=== PATIENT | female | born 1995 | race Two or more races ===

== ENCOUNTER 2023-09-08 21:36 | Emergency (ER) | payer MEDICAID, OTHER ==
[~2023-09-08] VITALS: Ht 157.5 cm; Wt 70.2 kg
[2023-09-08] MEDS ORDERED: AMOX500C2 PO (23:36)
[2023-09-09 00:47] VITALS: BP 108/79; PULSE 99; RESP 20; TEMP 99; O2SAT 96
== END 2023-09-09 02:56 | disposition home or self-care (01) ==
LOC: ER 21:36
DX: J02.0 Streptococcal pharyngitis (principal)